=== PATIENT | female | born 2000 | race Caucasian/White ===

== ENCOUNTER 2022-10-19 13:44 | Observation (INO) | payer MEDICAID, OTHER ==
[~2022-10-19] VITALS: Ht 167.6 cm; Wt 74.8 kg
== END 2022-10-19 16:55 | disposition left against medical advice (07) ==
LOC: 8 EST LDRP 13:44
PROVIDERS: ADMIT Obstetrics & Gynecology; ATTEND Obstetrics & Gynecology
DX: O26.893 Other specified pregnancy related conditions, third trimester (principal); R10.30 Lower abdominal pain, unspecified; Z3A.35 35 weeks gestation of pregnancy; V89.2XXA Person injured in unspecified motor-vehicle accident, traffic, initial encounter; Y93.89 Activity, other specified; Y92.89 Other specified places as the place of occurrence of the external cause; Y99.8 Other external cause status
CPT/HCPCS: 59025; 76818; 76805; G0378 ×2; 99281